=== PATIENT | female | born 1995 | race Hispanic/Latino ===

== ENCOUNTER 2017-07-15 04:09 | Emergency (ER) | payer SELFPAY ==
--- NOTE | 2017-07-15 04:49 | C.PDOC ---
History Of Present Illness 22 year old female is brought in by EMS for evaluation. Patient took a taxi but was unable to recall her address so catering driver called EMS to have patient transported to the ED. Patient is intoxicated and unable to answer any questions. Time Seen by Provider: 07/15/17 04:29 Chief Complaint (Nursing): Substance Abuse History Per: EMS History/Exam Limitations: intoxication Onset/Duration Of Symptoms: Hrs Current Symptoms Are (Timing): Still Present Suicide/Self Injury Attempted (Context): None Modifying Factor(s): Alcohol Associated Symptoms: denies: Depression, Suicidal Thoughts, Suicidal Plan Recent travel outside of the [place]: No Additional History Per: EMS Past Medical History Reviewed: Historical Data, Nursing Documentation, Vital Signs Vital Signs: Last Vital Signs Temp 97.9 F 07/15/17 04:26 Pulse 86 07/15/17 04:26 Resp 20 07/15/17 04:26 BP 101/65 07/15/17 04:26 Pulse Ox 97 07/15/17 04:51 - Medical History PMH: No Chronic Diseases Surgical History: No Surg Hx Family History: States: Unknown Family Hx - Social History Hx Alcohol Use: Yes Hx Substance Use: No Review Of Systems Review Of Systems: ROS cannot be obtained secondary to pt's inabilty to answer questions. Physical Exam - Physical Exam Appears: Non-toxic, Other (intoxciated, arousable ) Skin: Normal Color, Warm, Dry, Other (no signs of trauma) Head: Atraumatic Eye(s): bilateral: Normal Inspection, PERRL Oral Mucosa: Moist Neck: Normal ROM, Supple Chest: Symmetrical Cardiovascular: Rhythm Regular Respiratory: Normal Breath Sounds, No Rhonchi, No Wheezing Gastrointestinal/Abdominal: Soft, No Distention Extremity: Bilateral: Atraumatic, Normal Color And Temperature Neurological/Psych: Other (arousable to vocal and tactile stimuli - remains very drowsy) Gait: Unable To Assess ED Course And Treatment O2 Sat by Pulse Oximetry: 97 (ON RA) Pulse Ox Interpretation: Normal Progress Note: Plan: - Pending sobriety Disposition - Disposition Disposition Time: 06:55 Condition: STABLE Forms: [facility] (Malay) - Clinical Impression Clinical Impression: Alcohol intoxication - 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 - Scribe Statement The provider has reviewed the documentation as recorded by the Chaoibe Sergey Pineda All medical record entries made by the Scribe were at my direction and personally dictated by me. I have reviewed the chart and agree that the record accurately reflects my personal performance of the history, physical exam, medical decision making, and the department course for this patient. I have also personally directed, reviewed, and agree with the discharge instructions and disposition. Physician Patient Turnover Patient Signed Over To: Jessica Irving Handoff Comments: Pending sobriety test for dispo
[2017-07-15 07:29] VITALS: BP 101/64; PULSE 109; RESP 18; TEMP 97.3; O2SAT 100
== END 2017-07-15 07:42 | disposition home or self-care (01) ==
LOC: C.ER 04:09
DX: F10.129 Alcohol abuse with intoxication, unspecified (principal); Y90.9 Presence of alcohol in blood, level not specified